=== PATIENT | female | born 1995 | race Caucasian/White ===

== ENCOUNTER 2021-07-22 12:15 | Emergency (ER) | payer OTHER ==
[2021-07-22 14:32] LABS: HEMOGLOBIN 14.1 gm/dl (12.3-15.3); RED BLOOD COUNT 4.76 M/UL (4.00-5.10); WHITE BLOOD COUNT 8.9 K/UL (4.5-11.0)
[2021-07-22 15:15] LABS: BUN/CREATININE RATIO 10 (0-10)
== END 2021-07-22 17:40 | disposition home or self-care (01) ==
LOC: ER1 12:15
PROVIDERS: Physician Assistant
DX: M79.671 Pain in right foot (principal); Z91.040 Latex allergy status; V49.9XXA Car occupant (driver) (passenger) injured in unspecified traffic accident, initial encounter
CPT/HCPCS: 71260; 73610; 73630; 80053; 82550; 82553; 83874; 84484; 85025; 93005; 96372; 99285; J1885; Q9967